=== PATIENT | female | born 1945 | race Caucasian/White ===

== ENCOUNTER 2022-10-09 11:00 | Outpatient (RCR) | payer MEDICARE, SELFPAY ==
--- NOTE | 2022-07-22 10:57 | HP.PTEVAL ---
Patient's Visit Information JOSELINE THOMAS is a 76 year old F referred to Physical Therapy by HOLLI STOCK with a diagnosis of Ischial bursitis L and hamstring tendonitis. Date of Evaluation: 07/22/22 Physical Therapist: RACHEL Malin - Visit Plan Frequency: 2x /Week Duration: 2 Months Plan: +++Goes by Joseline Dixon++++. 2X/ week for 8 weeks (scheduled for 3 weeks to start) for manual foam rolling to B piriformis and IT band, stretching of B piriformis and IT band, glut med strength, hip and core strengthening with HEP - Subjective She just moved back here from [place] and she has done PT several times in [place] but has moved back here and deciding on a hip replacement versus continued treatment. She has seen Dr Sparks and the hip replacement is up to her but her needs care. She has lidocaine patches, tramadol, oxy. She does not take them unless it is an emergency. She does not know if she can afford PT as far as the cost is concerned. This has been going on for years and there are times that her knees will lock up and at that point she will fall. This ususally happens when she is walking the dogs. She has also had the injections in her legs for pain. He current sx without an meds... she has ache from hip to knee on both sides and sometimes more on her sit bones she will have pain. Her pain is sporadic. In PT before and it has helped as long as she can keep it up at home too. They did a lot of stretching and exercises with her last time. Pt reports that Dry Needling did not work. They tried orthotics and that did not do anything. Pt reports that stretching and strenghthening that she can do at home is more beneficial. Rolling over in bed and getting out of bed is more of an issue for her. As she tries to roll to the L everything hurts on the L side. Scooting in bed either way hurts and she has to work hard to scoot over. She can sit for hours. She can stand most of the the time for hours. She has more pain laying on that side or compression on that side. - Pain R hip pain Pain Intensity (Out of 10): 2 L hip pain Pain Intensity (Out of 10): 5 R buttock pain Pain Intensity (Out of 10): 0 L buttock pain Pain Intensity (Out of 10): 0 - Objective Gait: walks with short stride and increase veering with gait. Trunk AROM: flex 75%, ext 25%, SB B 25%, Rot B 25%. Pt is able to rise on heels and toes with the help of the hallways rail. LE MMT: R hip flex 7.6# and L 5.7#. R knee ext 23.4 and L knee ext 22.4. R knee flex 9.8# and L knee flex 6.9. R hip abd 8.8# and L hip abd 9.9. Palpation: tender R IT band and VERY TENDER L IT BAND. Bridge: 1/2 normal ROM and increase pain across B buttocks. SLUMP test - B )some HS tightness. Lying PRONE pt felt pain across B buttocks and when bent knees she felt worse pain from her knee up the back to her bottock. Piriformis: increase pain with stretching B but worse on the L. Instructed pt in seated knee to opposite shoulder piriformis stretch - Balance/Special Test Scores Lower Extremity Functional Score: 46 - Goals Goal 1:: I HEP Goal Time Frame: 6-8 Weeks Goal 2:: Increase B piriformis flexibility Goal Time Frame: 6-8 Weeks Goal 3:: Complaints of no pain scooting over in bed or rolling onto her side Goal Time Frame: 6-8 Weeks - Rehabilitation Potential Rehabilitation Potential: Good - Anticipated Interventions Patient/Client Instruction: Educate patient on: Condition, Plan of Care For the Purpose of:: To decrease pain, To increase ROM, To improve nutrient delivery to tissue, To improve muscle performance and motor function, To improve ability to perform ADL's, To increase tolerance to activity/condition/position, To improve performance and independence with ADL's, To decrease level of supervision to perform tasks, To improve ability of physical actions for home/community/work/leisure, To improve gait and locomotor functions, To improve health of tissue, To decrease soft tissue restriction, To increase flexibility/ROM, To improve endurance, To improve balance, To improve safety with gait Therapeutic Exercise to Include: Strength training, Endurance training, Balance training, Body mechanics, Postural training, Flexibilty training, Gait and locomotor training, Passive ROM, Active ROM, Dynamic Lumbar Stabilization For the Purpose of:: To decrease pain, To increase ROM, To improve nutrient delivery to tissue, To improve muscle performance and motor function, To improve ability to perform ADL's, To increase tolerance to activity/condition/position, To improve performance and independence with ADL's, To decrease level of supervision to perform tasks, To improve ability of physical actions for home/community/work/leisure, To improve gait and locomotor functions, To improve health of tissue, To decrease soft tissue restriction, To increase flexibility/ROM, To improve endurance, To improve balance, To improve safety with gait Functional Training to Include: Gait training For the Purpose of:: To improve gait and locomotor functions, To improve safety with gait Manual Therapy Techniques to Include: Passive ROM For the Purpose of:: To decrease pain, To increase ROM, To improve nutrient delivery to tissue, To improve muscle performance and motor function, To improve ability to perform ADL's, To increase tolerance to activity/condition/position, To improve performance and independence with ADL's, To decrease level of supervision to perform tasks, To improve ability of physical actions for home/community/work/leisure, To improve gait and locomotor functions, To improve health of tissue, To decrease soft tissue restriction, To increase flexibility/ROM, To improve balance Thank you for the opportunity to evaluate your patient. For Medicare and Medicare HMO plans, please review the plan of care and approve it. It will need to be FAXED BACK to us at [phone] for Medicare purposes. For Medicare only, by signing this I certify the plan of care. Please let me know if there are questions or concerns regarding this plan of care. Physician Signature: Date:
--- NOTE | 2022-08-21 17:29 | HP.PTREVAL ---
HOLLI STOCK, It has been my pleasure to treat DELFINA THOMAS over the last 7 visits for Ischial bursitis L and hamstring tendonitis. Please see the progress note below for an update on the physical therapy plan of care! Subjective: Pt reports that this has been going on for years now and its not going to be better fast. She reports that maybe she is a little better. She saw Dr Garcia today. Her pain depends on what she is doing and where she is. She can do things but maybe slower. She is doing her HEP twice a day. Objective/Function: subjective rolling over or scooting in bed: still painful when rolls to the L. Piriformis flexibility: improved. Pt asking about her meds and told her she would have to direct those questions to her Dr. Plan Plan: Add some eccentric strengthening of HS and glut. 2X/ week for 8 weeks (scheduled for 3 weeks to start) for manual foam rolling to B piriformis and IT band, stretching of B piriformis and IT band, glut med strength, hip and core strengthening with HEP Balance/Gait/Functional tests - Balance/Special Test Scores Lower Extremity Functional Score: 50 Goals Goal 1:: I HEP Goal Time Frame: 6-8 Weeks Goal 2:: Increase B piriformis flexibility Goal Time Frame: 6-8 Weeks Goal 3:: Complaints of no pain scooting over in bed or rolling onto her side Goal Time Frame: 6-8 Weeks Goal Progress: Progressing Anticipated Interventions Patient/Client Instruction: Educate patient on: Condition, Plan of Care For the Purpose of:: To decrease pain, To increase ROM, To improve nutrient delivery to tissue, To improve muscle performance and motor function, To improve ability to perform ADL's, To increase tolerance to activity/condition/position, To improve performance and independence with ADL's, To decrease level of supervision to perform tasks, To improve ability of physical actions for home/community/work/leisure, To improve gait and locomotor functions, To improve health of tissue, To decrease soft tissue restriction, To increase flexibility/ROM, To improve endurance, To improve balance, To improve safety with gait Therapeutic Exercise to Include: Strength training, Endurance training, Balance training, Body mechanics, Postural training, Flexibilty training, Gait and locomotor training, Passive ROM, Active ROM, Dynamic Lumbar Stabilization For the Purpose of:: To decrease pain, To increase ROM, To improve nutrient delivery to tissue, To improve muscle performance and motor function, To improve ability to perform ADL's, To increase tolerance to activity/condition/position, To improve performance and independence with ADL's, To decrease level of supervision to perform tasks, To improve ability of physical actions for home/community/work/leisure, To improve gait and locomotor functions, To improve health of tissue, To decrease soft tissue restriction, To increase flexibility/ROM, To improve endurance, To improve balance, To improve safety with gait Functional Training to Include: Gait training For the Purpose of:: To improve gait and locomotor functions, To improve safety with gait Manual Therapy Techniques to Include: Passive ROM For the Purpose of:: To decrease pain, To increase ROM, To improve nutrient delivery to tissue, To improve muscle performance and motor function, To improve ability to perform ADL's, To increase tolerance to activity/condition/position, To improve performance and independence with ADL's, To decrease level of supervision to perform tasks, To improve ability of physical actions for home/community/work/leisure, To improve gait and locomotor functions, To improve health of tissue, To decrease soft tissue restriction, To increase flexibility/ROM, To improve balance Please do not hesitate to contact me at [phone] by phone or if you have questions or concerns regarding this new plan of care! Sincerely, RACHEL Malin
--- NOTE | 2022-10-09 11:47 | HP.PTDCSUM ---
It has been my pleasure to treat DELFINA THOMAS referred by HOLLI STOCK, with the diagnosis of Ischial bursitis L and hamstring tendonitis for a total of 17 visit(s). Discharge Date: 10/09/22 Please see the following information for a summary of their discharge status. Subjective: Pt is comfortable with the machines. She still has to activate her silver sneakers. R hip pain Pain Intensity (Out of 10): 2 L hip pain Pain Intensity (Out of 10): Unrated R buttock pain Pain Intensity (Out of 10): Unrated L buttock pain Pain Intensity (Out of 10): Unrated back pain Pain Intensity (Out of 10): 3 % Improvement: 100 Objective/Function: Rolling/scooting over in bed is not getting any different. Piriformis muscle length: Pt has improved muscle length... she still feels a stretch but it is not painful and more ROM Goal 1:: I HEP Goal Progress: Goal Met Goal 2:: Increase B piriformis flexibility Goal Progress: Progressing Goal 3:: Complaints of no pain scooting over in bed or rolling onto her side Goal Progress: Progressing Plan: DC PT to I HEP and Silver sneakers gym routine (she has gym routine log sheet) Discharge Comments: DC PT to HEP and I H&W program If there are questions or concerns regarding this patient's physical therapy, please feel free to call me at [phone]. Thank you for the referral of this patient. Sincerely, Vita Kevin, MPT Balance/Gait/Functional tests - Balance/Special Test Scores Lower Extremity Functional Score: 54
== END 2022-10-09 19:00 | disposition home or self-care (01) ==
LOC: PT 11:00
PROVIDERS: PCP Family Medicine
DX: M70.72 Other bursitis of hip, left hip (principal); M76.899 Other specified enthesopathies of unspecified lower limb, excluding foot
CPT/HCPCS: 97110; 97161; 97530

== ENCOUNTER → 2022-12-21 | Outpatient (CLI) | payer MEDICARE, SELFPAY ==
--- NOTE | 2022-12-21 08:30 | MRI_ITS ---
INDICATION: PAIN EXAMINATION: MRI - MR Spine Lumbar W/O Contrast TECHNIQUE: Multiplanar and multisequence MR images of the lumbar spine. IV Contrast Dosage and Agent: None. COMPARISON: None. FINDINGS: VERTEBRAE: Chronic T12 compression fracture with retropulsed fragment tenting the thecal sac. No acute fracture or pathologic marrow replacement. VERTEBRAL ALIGNMENT: 4 mm retrolisthesis L1 on L2, 9 mm spondylolisthesis L4 on L5. There is preservation of the normal lumbar lordosis. CORD: Normal position and signal intensity of the conus medullaris. L1/L2: Normal disc space height. Circumferential annular bulge and posterior element hypertrophy produces moderate bilateral foraminal stenosis. L2/L3: Loss of normal disc space height. Circumferential annular bulge produces moderate central and bilateral foraminal stenosis. L3/L4: Normal disc space height. Circumferential annular bulge produces mild central and moderate bilateral foraminal stenosis in combination with posterior element hypertrophy. L4/L5: Loss of normal disc space height. Pseudobulge combined with posterior element hypertrophy produces moderate central and severe bilateral foraminal stenosis, right side more severe than left. L5/S1: Loss of normal disc space height. 4 mm lateral disc herniation extends into the left neural foramen producing severe stenosis. SOFT TISSUES: Left parapelvic renal cysts. MRI/Spine Lumbar (Routine) IMPRESSION: 4 mm left lateral disc herniation at L5-S1. Chronic T12 compression fracture with retropulsed fragment tenting the thecal sac. Multilevel central and foraminal stenoses as above, most severe findings at the level of L4-5. Electronically Signed: Crescencio Garza MD at 0:17 EDT ,
== END | disposition home or self-care (01) ==
LOC: MRI 08:32
PROVIDERS: PCP Internal Medicine
DX: M79.604 Pain in right leg (principal); I73.9 Peripheral vascular disease, unspecified; M79.605 Pain in left leg; R26.9 Unspecified abnormalities of gait and mobility; G60.9 Hereditary and idiopathic neuropathy, unspecified
CPT/HCPCS: 72148

== ENCOUNTER 2022-12-25 15:55 | Outpatient (RCR) | payer MEDICARE, SELFPAY ==
--- NOTE | 2022-12-25 18:50 | HP.PTEVAL_ITS ---
Patient's Visit Information Visit Information Visit Information: DELFINA THOMAS is a 77 year old F referred to Physical Therapy by HOLLI STOCK with a diagnosis of B leg pain, Claudication of BLEs, gait abnormality, idiopathic neuropathy. Date of Evaluation: 12/25/22 Physical Therapist: Juan Chester DPT Visit Plan Frequency: 2x /Week Duration: 6 Weeks Plan: Start with B hip and core strengthening in aquatic setting. Pt. is following up with physician about MRI and determine best course of action. Subjective Subjective: Pt. is here today for her initial evaluation with diagnosis of B leg pain, Claudication of BLEs, gait abnormality, idiopathic neuropathy. Pt. reports over the past few months having increased tingling in her legs and that they give out on her at times. Pt. reports having multiple issues including her B leg pain, less so back pain, optical flashes patient reports this is due to a possible stroke, and fibromyalgia. Pt. reports increased pain and tingling in her legs with prolonged standing and walking. No issues with sitting, but there is a constant dull symptoms always present. Pt. has tried PT in the past without much relief. Pt. has done DN without much relief as well. She did do some aquatic exercises with some mild relief and is interested in trialing again. She did have an MRI last week on her lumbar spine as well. Pt. has also tried injections in the past. Pain BLEs: Pain Intensity (Out of 10): 4 Pain Intensity Range: 0 and 8 Lumbar spine: Pain Intensity (Out of 10): 3 Pain Intensity Range: 0 and 6 Objective Objective: POSTURE: Pt. has general flexed posture in stance. Pt. and decreased lumbar lordosis. Equal iliac crest heights. PALPATION: Pt. has tenderness to light and firm palpation throughout BLEs. Pt. has tenderness along lumbar spine with PA testing. NEURO: Pt. normal sensation in BLEs to light touch. Pt. has normal DTR of BLEs. ROM: LUMBAR SPINE: flexion min loss NE, ext mod loss increase NW, SB mod loss NE bilat, rotation mod loss bilat NE. B hips: decent ROM, slight loss increase IR and flexion. No pain with hip ROM testing. MMT: Distal LEs. Pt. has good strength 5/5 . B hips: flexion 5-/5, abd 4/5, ext 4+/5. Core strength poor. GAIT: Pt. ambulates without AD. Pt. had increased lateral hip sway, not a full Trendelenburg, but noticeable lateral hip weakness. Balance/Special Test Scores Lower Extremity Functional Score: 42 Goals Goal 1:: LTG: Pt. to be I with HEP. Goal Time Frame: 4-6 Weeks Goal 2:: LTG: Pt. to have increased core and B hip strength increased by 1/2 gra de throughout. Goal Time Frame: 4-6 Weeks Goal 3:: LTG: Pt. to sleep throughout the night without increase in BLE or low back symptoms. Goal Time Frame: 4-6 Weeks Goal 4:: LTG: Pt. to be able to walk for 10 minutes without increase in BLE or back symptoms. Goal Time Frame: 4-6 Weeks Rehabilitation Potential Physical Therapy Diagnosis: Pt. has signs and symptoms consistent with B leg pain, Claudication of BLEs, gait abnormality, idiopathic neuropathy. Pt. does a have a recent MRI that results may be also contributing her her symptoms. Pt. has marked core and hip weakness and would benefit from PT to work on these weakness in order to reduce stress to lumbar spine with standing activities. Rehabilitation Potential: Fair Anticipated Interventions Patient/Client Instruction: Educate patient on: Condition, Plan of Care, Risk Factors and Benefits of Fitness Program For the Purpose of:: To facilitate caregiver knowledge, To improve self management, To prevent re-injury, To improve ability to perform tasks related to life management and To improve tolerance to ADL's Therapeutic Exercise to Include: Strength training, Power training, Endurance training, Balance training, Flexibilty training, Gait and locomotor training, In an aquatic setting and Dynamic Lumbar Stabilization For the Purpose of:: To decrease pain, To increase ROM, To improve nutrient delivery to tissue, To increase oxygenation perfusion, To improve muscle performance and motor function, To improve ability to perform ADL's, To improve gait and locomotor functions, To improve health of tissue, To decrease soft tissue restriction and To increase flexibility/ROM Text: Thank you for the opportunity to evaluate your patient. For Medicare and Medicare HMO plans, please review the plan of care and approve it. It will need to be FAXED BACK to us at [phone] for Medicare purposes. For Medicare only, by signing this I certify the plan of care. Please let me know if there are questions or concerns regarding this plan of care. Physician Signature: Date:
== END 2022-12-25 19:00 | disposition home or self-care (01) ==
LOC: PT 15:55
PROVIDERS: PCP Family Medicine
DX: M79.604 Pain in right leg (principal); M79.605 Pain in left leg; I73.9 Peripheral vascular disease, unspecified; R26.9 Unspecified abnormalities of gait and mobility; G60.9 Hereditary and idiopathic neuropathy, unspecified
CPT/HCPCS: 97161

== ENCOUNTER 2023-05-05 07:48 | Outpatient (RCR) | payer MEDICARE, SELFPAY ==
--- NOTE | 2023-05-05 08:46 | HP.PTEVAL_ITS ---
Patient's Visit Information Visit Information Visit Information: DELFINA THOMAS is a 77 year old F referred to Physical Therapy by Dr. Kemal Cano MD with a diagnosis of L/S sponylosis, Chronic LBP. Date of Evaluation: 05/05/23 Physical Therapist: RACHEL Malin Visit Plan Frequency: 2x /Week Duration: 2 Months Plan: 2X/ week for 8 weeks for AT for neutral spine core stability, Posture, LE strengthening, balance with HEP Subjective Subjective: Pt reports that her has PD and makes her do a lot. She has back pain and pain management and had one injection and did not work other than for a few days. She has a follow up with Dr. Novak for a possible another injection. 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 She reports that she has an eye issue and that is hindering her vision. She is having trouble walking and stubs her feet. Her sx for her LB...feels like she has been kicked and she points to across her LB and more on the R side as to where her back pain is. She has an achy pain. Typically she has no pain sitting but more so when she is up walking etc. She has some pain sitting and reaching. She reports that she has N&T in her feel and lower and upper legs. It hurts to put things up on closet shelves. She was also diagnosed with PD also. She is doing marching, LAQ, clam shells, walking (20 min several times a day on a level surface at home or at school). She has no stairs at home. She is sleeping sometimes but is up a lot with her . The Dr told her she has vertebrae that are getting thinner. She has osteoporosis and FM and does not have RA but it does run in the family. She does not feel like her legs are weak but if she walks a lot they feel like they want to lock up on her. She has fallen. She has fallen 4 times in the last 6 months....generally when lifting or the dogs pulling her in opposite directions. No dizziness. She has full feeling in her legs. Pain Back pain: Pain Intensity (Out of 10): 2 Pain Intensity Range: 7 Comment: with walking in Objective Objective: Gait: walks with decrease stride length and decrease heel to toe pattern and increase side to side translation, flexed posture. LE MMT: R hip flex 12 and L 6 R knee ext 22 and L 23 R knee flex 11 and L 14 FGA: 19 Patellar DTR: 2+/3 Trunk AROM: Flexion 100%, SB B 10% (increase pain), Ext to neutral (increase pain), Rot B 75% SLUMP: negative B except for stretching of B HS Balance/Special Test Scores Functional Gait Assessment Score: 19 % Disability: 36.6700 Oswestry Low Back Score: 22 Goals Goal 1:: I HEP Goal Time Frame: 6-8 Weeks Goal 2:: Decrease back pain to 5/10 with standing and walking Goal Time Frame: 6-8 Weeks Goal 3:: Increase LE strength (at time of the eval: LE MMT: R hip flex 12 and L 6 R knee ext 22 and L 23 R knee flex 11 and L 14) Goal Time Frame: 6-8 Weeks Goal 4:: Be able to walk with more upright posture Goal Time Frame: 6-8 Weeks Rehabilitation Potential Rehabilitation Potential: Good Anticipated Interventions Patient/Client Instruction: Educate patient on: Condition and Plan of Care For the Purpose of:: To decrease pain, To increase ROM, To improve nutrient delivery to tissue, To increase tolerance to activity/condition/position, To improve performance and independence with ADL's, To improve ability of physical actions for home/community/work/leisure, To improve gait and locomotor functions, To improve health of tissue, To decrease soft tissue restriction, To increase flexibility/ROM and To improve endurance Therapeutic Exercise to Include: Strength training, Postural training, Flexibilty training, Gait and locomotor training, Neuromotor development, In an aquatic setting, Active ROM, Dynamic Lumbar Stabilization and Scapular Strength/Stabilization For the Purpose of:: To decrease pain, To decrease swelling/inflammation, To increase ROM, To increase oxygenation perfusion, To improve muscle performance and motor function, To improve ability to perform ADL's, To increase tolerance to activity/condition/position, To improve performance and independence with ADL's, To decrease level of supervision to perform tasks, To improve gait and locomotor functions, To improve health of tissue, To decrease soft tissue r estriction, To increase flexibility/ROM, To improve endurance and To improve balance Text: Thank you for the opportunity to evaluate your patient. For Medicare and Medicare HMO plans, please review the plan of care and approve it. It will need to be FAXED BACK to us at [phone] for Medicare purposes. For Medicare only, by signing this I certify the plan of care. Please let me know if there are questions or concerns regarding this plan of care. Physician Signature: Date:____
== END 2023-05-05 23:59 | disposition home or self-care (01) ==
LOC: PT 07:48
PROVIDERS: PCP Internal Medicine; Referring Provider Internal Medicine; Visit Provider Internal Medicine
DX: M47.817 Spondylosis without myelopathy or radiculopathy, lumbosacral region (principal); M54.50 Low back pain, unspecified; G89.29 Other chronic pain
CPT/HCPCS: 97162

== ENCOUNTER → 2023-09-05 | Outpatient (CLI) | payer MEDICARE, SELFPAY ==
[2023-09-05 17:34] LABS: Amphetamine Urine VISTA NEGATIVE (<1000 ng/mL); Barbiturate Urine VISTA NEGATIVE (< 200 ng/mL); Benzodiazepine Urine VISTA NEGATIVE (< 200 ng/mL); Cocaine Urine VISTA NEGATIVE (< 300 ng/mL); Ecstacy Urine VISTA NEGATIVE (< 500 ng/mL); Methadone Urine VISTA NEGATIVE (< 300 ng/mL); PCP Urine VISTA NEGATIVE (< 25 ng/mL); THC Urine VISTA NEGATIVE (< 50 ng/mL); Vista UDS pH Range 5
== END | disposition home or self-care (01) ==
LOC: LAB 16:39
PROVIDERS: PCP Internal Medicine; Referring Provider Anesthesiology; Visit Provider Anesthesiology
DX: F11.20 Opioid dependence, uncomplicated (principal)
CPT/HCPCS: 80307

== ENCOUNTER 2023-10-22 11:30 | Outpatient (RCR) | payer MEDICARE, SELFPAY ==
--- NOTE | 2023-05-28 07:04 | HP.PTEVAL ---
Patient's Visit Information Visit Information Visit Information: DELFINA THOMAS is a 77 year old F referred to Physical Therapy by Dr. Diego Novak MD with a diagnosis of IVDD lumbar spine, IVDD lumbosacral region, lumbar radiculopathy. Date of Evaluation: 05/26/23 Physical Therapist: Juan Chester DPT Visit Plan Frequency: 2x /Week Duration: 4 Weeks Plan: Start with neutral spine core stability exercises. May use US if needed to lumbar spine bilateral sides. Start with supine/hooklying excises progressing to standing multifidus and lumbar extensor strengthening. Subjective Subjective: Pt. is here today for her initial evaluation with diagnosis of IVDD lumbar spine, IVDD lumbosacral region, lumbar radiculopathy. Pt. did have an injection on last . 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 Pt. reports reports pain is and middle of her spine and bilateral LEs. Pt. has some relief with her injections thus far. 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 She reports pain that does radiate down BLEs, intermittently. Usually to the length of her thighs. Pt. reports no sudden BLE weakness, no B/B issues. Pt. is hopeful to reduce symptoms and increase her strength in order to complete all ADLs and work activities without limitations. Pain Lumbar spine: Pain Intensity (Out of 10): 2 Pain Intensity Range: 2 and 9 Objective Objective: POSTURE: General flexed posture with forward head. Increased anterior pelvic tilt noted. PALPATION: Increased pain with palpation of lumbar spine. Spring testing + for hypomobility and pain throughout lumbar spine. ROM: L/S: flexion min loss increase nW, ext mod loss increase NW, SB min loss bilat increase NW, rotation min loss pancho increase NE. NEURO: normal throughout. Pt. reports numbness in BLEs, but able to sense light and sharp touch throughout out. MMT: 5/5 LE strength, except 4/5 B hip flexion and B hip abduction. Core strength: poor. gait; Pt. has increased lateral hip sway with gait, no true [place] noted. STAIRS: marked weakness with descending, decreased LE control. No increase in symptoms. Balance/Special Test Scores Oswestry Low Back Score: 11 Goals Goal 1:: LTG: PT. to be I with HEp for core stability. Goal Time Frame: 4-6 Weeks Goal 2:: STG: Pt. to sleep throughout the night without increase in symptoms. Goal Time Frame: 2-4 Weeks Goal 3:: LTG: Pt. to have increased core strength to fair throughout. Goal Time Frame: 2-4 Weeks Goal 4:: LTG: PT. to complete all work and recreational activities without increase in symptoms. Goal Time Frame: 4-6 Weeks Rehabilitation Potential Physical Therapy Diagnosis: PT. has signs and symptoms consistent with IVDD lumbar spine, IVDD lumbosacral region, lumbar radiculopathy. Pt. has marked lumbar ROM loss and increased pain with all spinal mobility. She did not present with a directional preference at this time. She would benefit from PT to work on core stability exercises allowing for increased spinal stability for tolerance to all work and recreational activities. Rehabilitation Potential: Good Anticipated Interventions Patient/Client Instruction: Educate patient on: Condition, Plan of Care, Risk Factors and Benefits of Fitness Program For the Purpose of:: To improve decision making, To facilitate caregiver knowledge, To improve self management, To prevent re-injury and To improve ability to perform tasks related to life management Therapeutic Exercise to Include: Strength training, Power training, Postural training, Flexibilty training and Gait and locomotor training For the Purpose of:: To decrease pain, To increase ROM, To improve nutrient delivery to tissue, To increase oxygenation perfusion, To improve muscle performance and motor function, To improve ability to perform ADL's, To increase tolerance to activity/condition/position, To improve health of tissue and To decrease soft tissue restriction Ultrasound (thermal/non thermal): Yes For the Purpose of:: To decrease pain, To decrease swelling/inflammation and To increase ROM Text: Thank you for the opportunity to evaluate your patient. For Medicare and Medicare HMO plans, please review the plan of care and approve it. It will need to be FAXED BACK to us at [phone] for Medicare purposes. For Medicare only, by signing this I certify the plan of care. Please let me know if there are questions or concerns regarding this plan of care. Physician Signature: Date:
--- NOTE | 2023-07-23 14:23 | HP.PTREVAL_ITS ---
Re-Evaluation Intro: Dr. Diego Novak MD, It has been my pleasure to treat DELFINA THOMAS over the last 12 visits for IVDD lumbar spine, IVDD lumbosacral region, lumbar radiculopathy. Please see the progress note below for an update on the physical therapy plan of care! Subjective Subjective: Pt reports her back pain is about the same and walking is becoming more difficult. Pt reports weakness and her legs giving out which is affecting her balance. [place]. Has a pain management appointment tomorrow. Objective Objective/Function: ROM: pt felt a good stretch with L hip figure 4 stretch with OP, long axis traction and stretching helped to reduce pain with gait GAIT: increased lateral trunk sway, forward flexed posture MMT: weakness when resisting gravity in S/L, including core weakness 4/5, hip strength 4/5 throughout. Slight pain with hip ER motions. PALPATION: tenderness along L ITB and glute med Pt. just came back from a trip out of state. Pt. is still having similar issues. She c/o increased B hip pain, but more so her L side. We have not had much progression with core stability exercises. I would like to progress looking into mobility and strengthening of her L hip. Plan of care is now pivoting towards a muscular origin of the L hip. Pt demonstrates tightness in L ITB and weakness of L glute med, pain recreated with palpation and foam rolling to LLE. Pt appears to have no lingering pain or injury following fall on moving sidewalk last week (appears to be an accident, not d/t poor balance), will update with balance outcome measure to address any balance deficits. Plan Plan Plan: 1) STM to L glute med, ITB and piriformis 2) Hip and glute strengthening (within pain-free ROM) 3) Long axis hip traction 4) Neutral spine strengthening HEP: orange banded clamshells, piriformis stretch Balance/Gait/Functional tests Balance/Special Test Scores Oswestry Low Back Score: 9 Goals Goals Goal 1:: LTG: PT. to be I with HEp for core stability. Goal Time Frame: 4-6 Weeks Goal Progress: Goal Met Goal 2:: STG: Pt. to sleep throughout the night without increase in symptoms. 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 to complete all work and recreational activities without increase in symptoms. Goal Time Frame: 2-4 Weeks Goal Progress: Progressing Goal 5:: LTG: Pt will demonstrate min to no tenderness to L ITB and glutes Goal Time Frame: 2-4 Weeks Goal Progress: Progressing Goal 6:: LTG: Pt will demonstrate 4/5 hip strength with <2/10 pain Goal Time Frame: 2-4 Weeks Goal Progress: Progressing Anticipated Interventions Anticipated Interventions Patient/Client Instruction: Educate patient on: Condition, Plan of Care, Risk Factors and Benefits of Fitness Program For the Purpose of:: To improve decision making, To facilitate caregiver knowledge, To improve self management, To prevent re-injury and To improve abil ity to perform tasks related to life management Therapeutic Exercise to Include: Strength training, Power training, Postural training, Flexibilty training and Gait and locomotor training For the Purpose of:: To decrease pain, To increase ROM, To improve nutrient delivery to tissue, To increase oxygenation perfusion, To improve muscle performance and motor function, To improve ability to perform ADL's, To increase tolerance to activity/condition/position, To improve health of tissue and To decrease soft tissue restriction Ultrasound (thermal/non thermal): Yes For the Purpose of:: To decrease pain, To decrease swelling/inflammation and To increase ROM Re-Evaluation Ending Re-evaluation ending: Please do not hesitate to contact me at [phone] by phone or if you have questions or concerns regarding this new plan of care! Sincerely, Juan Chester DPT
--- NOTE | 2023-08-27 11:57 | HP.PTREVAL ---
Re-Evaluation Intro: Dr. Diego Novak MD, It has been my pleasure to treat DELFINA THOMAS over the last 19 visits for IVDD lumbar spine, IVDD lumbosacral region, lumbar radiculopathy. Please see the progress note below for an update on the physical therapy plan of care! Subjective Subjective: Pt. reports overall doing okay. She is still having some issues with her L hip. Pt. reports her back is doing better. Pt. reports being ~40% better overall. Objective Objective/Function: ROM: L Hip: flexion 100deg mild increase NW, IR 30deg NE, ER 60deg increase NW, ext 10deg NE. LUMBAR SPINE: flexion min/nil loss mild increase NW, ext mod loss NE, SB R min loss increase NW L hip pain. SB L min loss NE, rotation min loss bilat NE. Palpation: Pt. has increased tenderness along L hip superior and posterior to greater trochanter. No as much along piriformis. more along gluteus medius. GAIT: pt has slight increase in Trendelenburg gait more so on the L side. Increased pain during L stance phase of stairs. She was done okay with core stability, but is still having increased L hip with standing and work related activities. Core stability has helped, but she is still having increased pain suggetive of possible gluteus medius pathology. No marked joint pain, no C-sign. I would like to continue to work on glute medius strengthening and loading of the tissue. She is still very tender in this region and I would like to see if we can remodel that tissue in order to reduce stress to the tissue with all of her her ADLs and work activities. Plan Plan Plan: Work on glute med strengthening with progressive loading. Add in glute max strengthening as well. Balance/Gait/Functional tests Balance/Special Test Scores Oswestry Low Back Score: 9 Goals Goals Goal 1:: LTG: PT. to be I with HEp for core stability. Goal Time Frame: 4-6 Weeks Goal Progress: Goal Met Goal 2:: STG: Pt. to sleep throughout the night without increase in symptoms. 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 to complete all work and recreational activities without increase in symptoms. Goal Time Frame: 2-4 Weeks Goal Progress: Progressing Goal 5:: LTG: Pt will demonstrate min to no tenderness to L ITB and glutes Goal Time Frame: 2-4 Weeks Goal Progress: Progressing Goal 6:: LTG: Pt will demonstrate 4/5 hip strength with <2/10 pain Goal Time Frame: 2-4 Weeks Goal Progress: Progressing Anticipated Interventions Anticipated Interventions Patient/Client Instruction: Educate patient on: Condition, Plan of Care, Risk Factors and Benefits of Fitness Program For the Purpose of:: To improve decision making, To facilitate caregiver knowledge, To improve self management, To prevent re-injury and To improve ability to perform tasks related to life management Therapeutic Exercise to Include: Strength training, Power training, Postural training, Flexibilty training and Gait and locomotor training For the Purpose of:: To decrease pain, To increase ROM, To improve nutrient delivery to tissue, To increase oxygenation perfusion, To improve muscle performance and motor function, To improve ability to perform ADL's, To increase tolerance to activity/condition/position, To improve health of tissue and To decrease soft tissue restriction Ultrasound (thermal/non thermal): Yes For the Purpose of:: To decrease pain, To decrease swelling/inflammation and To increase ROM Re-Evaluation Ending Re-evaluation ending: Please do not hesitate to contact me at [phone] by phone or if you have questions or concerns regarding this new plan of care! Sincerely, Juan Chester DPT
--- NOTE | 2023-10-02 12:58 | HP.PTREVAL ---
Re-Evaluation Intro: Dr. Diego Novak MD, It has been my pleasure to treat DELFINA THOMAS over the last 28 visits for IVDD lumbar spine, IVDD lumbosacral region, lumbar radiculopathy. Please see the progress note below for an update on the physical therapy plan of care! Subjective Subjective: Pt. reports she feels better with exercises, but it comes back by the time she is here the next time. Pt. reports 3/10 pain at lateral hip. Objective Objective/Function: LUMBAR ROM: flexion nil loss, ext min loss decrease better, SB L min loss increase NW, SB R NE tight, rotation min loss NE. MMT: RLE: knee ext 32.5#, flexion 22.8#; hip: abd 21.5# LLE: knee: ext 34.9#, flexion 16.9#; hip: abd 24.4# She has had some gains in strength and does report overall improving. Pt. is overall improving. I am recommending that we start to progress to I gym program. She does have silver sneakers and plans to progress to gym exercises. Plan Plan Plan: Pt. to be seen x2 week for 3 weeks with progression to gym exercises. Add in general LE, but include glute and lumbar spine exercises. Mostly machines for ease of exercises. Balance/Gait/Functional tests Balance/Special Test Scores Oswestry Low Back Score: 10 Goals Goals Goal 1:: LTG: pt. to be I with gym program with focus on LE, hip and core strengthening. Goal Time Frame: 4-6 Weeks Goal Progress: Progressing Goal 2:: STG: Pt. to sleep throughout the night without increase in symptoms. 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 to complete all work and recreational activities without increase in symptoms. Goal Time Frame: 2-4 Weeks Goal Progress: Progressing Goal 5:: LTG: Pt will demonstrate min to no tenderness to L ITB and glutes Goal Time Frame: 2-4 Weeks Goal Progress: Progressing Goal 6:: LTG: Pt will demonstrate 4/5 hip strength with <2/10 pain Goal Time Frame: 2-4 Weeks Goal Progress: Progressing Anticipated Interventions Anticipated Interventions Patient/Client Instruction: Educate patient on: Condition, Plan of Care, Risk Factors and Benefits of Fitness Program For the Purpose of:: To improve decision making, To facilitate caregiver knowledge, To improve self management, To prevent re-injury and To improve ability to perform tasks related to life management Therapeutic Exercise to Include: Strength training, Power training, Postural training, Flexibilty training and Gait and locomotor training For the Purpose of:: To decrease pain, To increase ROM, To improve nutrient delivery to tissue, To increase oxygenation perfusion, To improve muscle performance and motor function, To improve ability to perform ADL's, To increase tolerance to activity/condition/position, To improve health of tissue and To decrease soft tissue restriction Ultrasound (thermal/non thermal): Yes For the Purpose of:: To decrease pain, To decrease swelling/inflammation and To increase ROM Re-Evaluation Ending Re-evaluation ending: Please do not hesitate to contact me at [phone] by phone or if you have questions or concerns regarding this new plan of care! Sincerely, Juan Chester DPT
--- NOTE | 2023-10-22 11:59 | HP.PTDCSUM ---
Discharge Summary D/C summary: It has been my pleasure to treat DELFINA THOMAS referred by Dr. Diego Novak MD, with the diagnosis of IVDD lumbar spine, IVDD lumbosacral region, lumbar radiculopathy for a total of 33 visit(s). Discharge Date: 10/22/23 Please see the following information for a summary of their discharge status. Subjective Subjective: Pt. reports having 4/10 pain in L hip and lumbar spine today. She has been tolerating working well. Pain Lumbar spine: Pain Intensity (Out of 10): 4 L gluteal region: Pain Intensity (Out of 10): 4 Overall Improvement % Improvement: 70 Objective Objective/Function: ROM: Pt. has good ROM of B hips without increase in symptoms. pt. has good ROM of lumbar spine, except mod loss with extension and with mild increase in symptoms with flexion. MMT: Pt. has symmetrical strength of BLEs with out increase in symptoms, except mild increase with bridging. GAIT: pt. has some increase in symptoms, but mild. STAIRS: normal without issues. At this point in time I am DCing back to physician. Pt. has a good HEP that she can complete at home. Pt. is to trial this and if not progressing she is to follow back up with physician to further testing. Goals Goal 1:: LTG: pt. to be I with gym program with focus on LE, hip and core strengthening. Goal Progress: Goal Met Goal 2:: STG: Pt. to sleep throughout the night without increase in symptoms. 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 to complete all work and recreational activities without increase in symptoms. Goal Progress: Progressing Goal 5:: LTG: Pt will demonstrate min to no tenderness to L ITB and glutes Goal Progress: Goal Met Goal 6:: LTG: Pt will demonstrate 4/5 hip strength with <2/10 pain Goal Progress: Goal Met Plan Plan: DC from PT at this point in time. D/C Information d/c sentence: If there are questions or concerns regarding this patient's physical therapy, please feel free to call me at [phone]. Thank you for the referral of this patient. Sincerely, Juan L Sipos, DPT Balance/Gait/Functional tests Balance/Special Test Scores Oswestry Low Back Score: 10 Lower Extremity Functional Score: 51 Improvement % Improvement: 70
== END 2023-10-22 12:32 | disposition home or self-care (01) ==
LOC: PT 11:30
PROVIDERS: PCP Internal Medicine; Referring Provider Anesthesiology Pain Medicine; Visit Provider Anesthesiology Pain Medicine
DX: M51.36 Other intervertebral disc degeneration, lumbar region (principal); M51.37 Other intervertebral disc degeneration, lumbosacral region; M54.16 Radiculopathy, lumbar region
CPT/HCPCS: 97035; 97110; 97140; 97161; 97164; 97530

== ENCOUNTER 2024-01-08 11:00 | Outpatient (RCR) | payer MEDICARE, SELFPAY ==
--- NOTE | 2023-12-22 10:14 | HP.PTEVAL_ITS ---
Patient's Visit Information Visit Information Visit Information: DELFINA THOMAS is a 78 year old F referred to Physical Therapy by Dr. Kemal Cano MD with a diagnosis of Abnormality of gait, falling episodes. Date of Evaluation: 12/22/23 Physical Therapist: Juan Chester DPT Visit Plan Frequency: 2x /Week Duration: 4 Weeks Plan: Start with static and dynamic balance. Add in eyes open and eyes closed. And on multiple surface. Progress gait training with SPC in order to use safely at home and throughout community. Subjective Subjective: Pt. is here today for her initial evaluation with diagnosis of abnormality of gait, and falling episodes. Pt. reports having one fall over the past few months. Pt. reports that her R leg just gave way, unsure why. Pt. reports being very stressed with her husbands physical decline and potential moving. Pt. reports noticing increased tremoring mostly in her arms. She also reports having tingling in her R león region. Pt. also reports much lack of sleep and nutrition due to her stress levels. Pt. reports pain is not too limiting, but is also a factor. Pt. does not use a device with gait. Pt. did stress several times during evaluation about how much stress she has in her life. Pt. reports going to neurologist whom reports that she does not have Parkinson's. Objective Objective: POASTURE: Pt. has FH posture. Pt. has normal AJIT. Otherwise normal posture. PALPATION: Pt. has some mild pain with palpation of R león, but other menendez normal. No marked edema noted. NEURO: Pt. has normal DTR and normal sensation in BLEs. Pt. is able to rise on heels with mild balance aide. ROM: Pt. has normal ROM of BLEs, slight tightness with trunk extensions and some mild tightness in B calves. MMT: RLE: knee: 38.5#, flexion: 20.4#.; hip: flexion 25.8#, abd 18.7# LLE: knee: ext 39.2#, flexion 22.4#; hip: flexion 25.5#, abd 23.6# GAIT: Pt. ambulated without AD. Pt. has marked bilateral postural sway, but was able to self correct with stepping strategies. Pt. trialed with SPC, but did have a lot of difficulty with the pattern, would benefit from review and practice here as well. Balance/Special Test Scores Functional Gait Assessment Score: 16 % Disability: 46.6700 Lower Extremity Functional Score: 40 TUG Test Time Seconds: 10.5 30 Second Chair Rise Test Seconds: 14 Goals Goal 1:: LTG: Pt. to be I with HEP. Goal Time Frame: 4-6 Weeks Goal 2:: LTG: Pt. to have improved TUG to less than 8 seconds indicating increased balance. Goal Time Frame: 4-6 Weeks Goal 3:: LTG: Pt. to have improved FGA score to great than 23/30 indicating increased stability. Goal Time Frame: 4-6 Weeks Goal 4:: LTG: Pt. to be I with gait with use of SPC allowing for better community safety. Goal Time Frame: 4-6 Weeks Rehabilitation Potential Physical Therapy Diagnosis: Pt. has signs and symptoms consistent with abnormality of gait and has had a falling episode. Pt. reports that her R leg just gave out on her. She does have a history of radicular or BLE pain, but showed no myotomal weakness this date. She did have increased difficulty with walking a straight line, but was able to correct. She did have some reduced stability on her FGA and with her TUG. She would benefit from PT to address her imbalance and have some gait training with SPC. Rehabilitation Potential: Good Anticipated Interventions Patient/Client Instruction: Educate patient on: Condition, Plan of Care, Risk Factors and Benefits of Fitness Program For the Purpose of:: To improve decision making, To facilitate caregiver knowledge, To improve self management, To prevent re-injury and To improve ability to perform tasks related to life management Therapeutic Exercise to Include: Strength training, Balance training, Coordination, Body mechanics and Gait and locomotor training For the Purpose of:: To decrease pain, To increase ROM, To improve nutrient delivery to tissue, To increase oxygenation perfusion, To improve muscle perfor james and motor function and To increase tolerance to activity/condition/position Text: Thank you for the opportunity to evaluate your patient. For Medicare and Medicare HMO plans, please review the plan of care and approve it. It will need to be FAXED BACK to us at [phone] for Medicare purposes. For Medicare only, by signing this I certify the plan of care. Please let me know if there are questions or concerns regarding this plan of care. Physician Signature: Date:
== END 2024-01-08 19:00 | disposition home or self-care (01) ==
LOC: PT 11:00
PROVIDERS: PCP Internal Medicine; Referring Provider Internal Medicine; Visit Provider Internal Medicine
DX: R26.9 Unspecified abnormalities of gait and mobility (principal); R29.6 Repeated falls
CPT/HCPCS: 97110; 97161

== ENCOUNTER 2024-03-23 13:14 | Emergency (ER) | payer MEDICARE, SELFPAY ==
[2024-03-23 13:16] VITALS: BP 153/64; PULSE 139; RESP 18; TEMP 36.5; O2SAT 100; BMI 26.4
--- NOTE | 2024-03-23 13:34 | EKG12_ITS ---
Test Reason : HIGH HR Blood Pressure : / mmHG Vent. Rate : 071 BPM Atrial Rate : 071 BPM P-R Int : 152 ms QRS Dur : 074 ms QT Int : 432 ms P-R-T Axes : 038 045 080 degrees QTc Int : 469 ms Sinus rhythm Poor R wave progression Baseline artifact Borderline Confirmed by Keenan Membreno ([id number]), editor news JUSTIN MEAD ([id number]) on 03/24/2024 9:27:45 AM Referred By: ARA/KYLE Confirmed By:Keenan Membreno
--- NOTE | 2024-03-23 14:44 | CT_ITS ---
EXAM: CT HEAD WITHOUT INTRAVENOUS CONTRAST CLINICAL INDICATION: difficulty with ambulation, shakiness TECHNIQUE: Multiple axial images were obtained of the head without intravenous contrast. This CT exam was performed using one or more of the following dose reduction techniques: automated exposure control, adjustment of the mA and/or kV according to patient size, and/or use of iterative reconstruction technique. RADIATION DOSE: CTDIvol = 44.99 mGy, DLP = 745.49 mGy-cm COMPARISON: No relevant prior studies available. FINDINGS: BRAIN AND EXTRA-AXIAL SPACES: Unremarkable. No intra- or extra-axial hemorrhage. No evidence of acute infarct. No intracranial mass or mass effect. There is preservation of the mark[place]/white matter interface. Posterior fossa structures are unremarkable. Ventricles are appropriate for age. No hydrocephalus. Basal cisterns are patent. BONES/JOINTS: Unremarkable. No discrete lytic or blastic abnormalities. SINUSES: Unremarkable as visualized. Clear. MASTOID AIR CELLS: Unremarkable. Clear. ORBITS: Visualized globes, extraocular muscles, optic nerves and retrobulbar fat appear unremarkable. CT/Brain/Head without Contrast IMPRESSION: Negative head/brain CT without intravenous contrast. Electronically Signed: Bonilla De La Rosa MD at 15:46 EDT ,
--- NOTE | 2024-03-23 14:45 | EX.ED.DYSGE1 ---
HPI History of Present Illness Chief Complaint: General Illness Narrative Narrative: 78-year-old female presents with friend/daughter for medical screening, shakiness, and difficulty ambulating. She relates history that she moved up to [place] and was bringing her down for an appointment with his Parkinson's doctor. She states that although she might be showing a few symptoms, it was determined that she does not have Parkinson's although her father did as well. She called her friend as she was driving along [address], stating that she was very shaky, and was not comfortable driving. Reportedly, she was having problems with ambulation as well. No recent fevers or chills. She states that she feels improved than what she did. Her friend/daughter states that she met them because she was not comfortable with her being behind the wheel of a car, and presents to the emergency department for evaluation. PFSH PFS Home Medications ?Medication ?Instructions ?Recorded ?Last Taken ?Type famotidine 20 mg tablet 20 mg PO BID ##28 08/09/13 Unknown Rx levothyroxine 25 mcg tablet 25 mcg PO DAILY 08/09/13 Unknown History potassium chloride 10 mEq 10 meq PO DAILY 08/09/13 Unknown History tablet,extended release (Klor-Con) spironolactone 25 mg tablet 25 mg PO DAILY 08/09/13 Unknown History sucralfate 1 gram tablet 1 g PO 4X/DAY 08/09/13 Unknown History tamoxifen 20 mg tablet 20 mg PO DAILY 08/09/13 Unknown History trazodone 50 mg tablet 50 mg PO QHS 08/09/13 Unknown History Allergy/AdvReac Type Severity Reaction Status Date / Time progesterone Allergy Mild Rash Verified 03/23/24 13:15 codeine AdvReac Other Verified 03/23/24 13:15 Social History Smoking Status: Never smoker ROS ROS ED ROS Narrative Constitutional: No fever, no chills. HEENT: No sore throat. No neck pain. No loss of vision. No rhinorrhea. Cardiovascular: No chest pain. No palpitations. No pedal edema. Respiratory: No cough, no shortness of breath. Abdominal: No abdominal pain. No nausea. No vomiting. Genitourinary: No dysuria. No hematuria. Musculoskeletal: No myalgias. No arthralgias. Neurologic: No headaches. No dizziness. No lightheadedness. Positive shakiness. Reported difficulty ambulating. Skin: No rash. No change in color. Psychiatric: No depression. No anxiety. EXAM Physical Exam Narrative Exam Narrative: Afebrile. Vital signs noted. Neurological examination nonfocal, nonlateralizing. Awake, alert, oriented x 3. Mildly repetitive. Cardiovascular examination regular rate and rhythm. Lungs are clear to auscultation bilaterally. Abdomen soft nontender with normal active bowel sounds. Const Vital Signs: 03/23/24 13:16 03/23/24 14:11 Temperature 97.7 F L Temperature Source Oral Pulse Rate 139 H Respiratory Rate 18 Respiratory Effort Normal Non-Labored Respiratory Pattern Normal Blood Pressure 153/64 H Blood Pressure Mean 93 Pulse Ox 100 Oxygen Delivery Method Room Air MDM MDM MDM Narrative Medical decision making narrative: Differential diagnosis includes but not limited to dehydration versus electrolyte imbalance versus dementia. Although she was reportedly having a heart rate of 139 in triage, that was over an hour ago, and her EKG was obtained and interpreted by myself independently as normal sinus rhythm at 71 bpm without ectopy or acute ST changes. No STEMI. Also the differential diagnosis would be occult pneumonia or infectious process including urinary tract infection. Basic laboratory work will be obtained as well CT imaging of the brain and chest x-ray to rule out pneumonia or pneumothorax. I reviewed the laboratory work obtained today and she has normal white count of 6.7 with hemoglobin 13.2, hematocrit 40.5. Platelet count normal at 194. Potassium slightly low at 3.3 which was replaced orally with 40 mill equivalents. She states she has supplementation at home and that this is already known to her. Glucose normal at 94, BUN normal at 17 with creatinine 0.68, no dehydration. LFTs are grossly unremarkable. Urinalysis is negative for infection. I do not feel antibiotics are indicated. CT of the brain was obtained and I reviewed the radiology report which shows no acute process. Chest x-ray in 1 view interpreted by myself independently shows no pneumonia or pneumothorax. I reviewed the radiology report which confirms my independent interpretation. Upon repeat examination at approximately 1605, she is feeling well, and is motivated for discharge. I do not feel that she requires observation or admission. I feel she can be discharged safely home with follow-up. Return instructions to the emergency department were reviewed. Disposition is discharged home in stable condition. History & Record Review Discussion w/independent historian: Patient and Family Lab Data Attestation: I reviewed the patient's lab results. Labs: Laboratory Results - last 24 hr 03/23/24 03/23/24 14:50 15:00 WBC 6.7 RBC 4.38 Hgb 13.2 Hct 40.5 MCV 92.5 MCH 30.1 MCHC 32.6 RDW Std Deviation 47.4 H RDW Coeff of Romy 13.9 Plt Count 194 MPV 9.4 Immature Gran % (Auto) 0.300 Neut % (Auto) 81.3 H Lymph % (Auto) 11.2 L [place] % (Auto) 6.7 Eos % (Auto) 0.1 Baso % (Auto) 0.4 Absolute Neuts (auto) 5.4 Absolute Lymphs (auto) 0.75 L Nucleated RBC % 0 Sodium 142 Potassium 3.3 L Chloride 110 H Carbon Dioxide 25.0 Anion Gap 7 BUN 17 Creatinine 0.68 Estim Creat Clear Calc 46.72 Est GFR (MDRD) Af Amer 108 Est GFR (MDRD) Non-Af 90 BUN/Creatinine Ratio 25.2 H Glucose 94 Calcium 9.0 Total Bilirubin 1.50 H AST 26 ALT 27 Alkaline Phosphatase 68 Total Protein 6.1 L Albumin 3.7 Globulin 2.4 Albumin/Globulin Ratio 1.5 Urine Color Yellow Urine Clarity Clear Urine pH 8.0 Ur Specific [place] 1.010 Urine Protein 15 H Urine Glucose (UA) Normal Urine Ketones 50 H Urine Occult Blood Negative Urine Nitrite Negative Urine Bilirubin Negative Urine Urobilinogen 1 H Ur Leukocyte Esterase Negative Urine RBC 0 SEEN Urine WBC 0 SEEN Ur Squamous Epith Cells 0-5 SEEN Urine Bacteria RARE Urine Mucus RARE Radiography Diagnostic Testing: Clinical Impression(s) from Imaging Studies Brain CT 03/23/24 14:44 IMPRESSION: Negative head/brain CT without intravenous contrast. Electronically Signed: Bonilla De La Rosa MD at 15:46 EDT , Chest X-Ray 03/23/24 15:13 IMPRESSION: 1. No acute findings in the chest. 2. Interval development of moderate degenerative osteoarthrosis of right shoulder and calcified granuloma in the right lower lung zone. Electronically Signed: Bonilla De La Rosa MD at 15:48 EDT , Discharge Plan Triage Chief Complaint: General Illness ED Provider: Bonilla Farnsworth Dx/Rx/DC Orders Clinical Impression: Shakiness, Hypokalemia Instructions: ED Hypokalemia, ED Symptoms Uncertain Cause Prescriptions: No Action trazodone 50 MG tablet 50 mg PO QHS sucralfate 1 GM tablet 1 g PO 4X/DAY potassium chloride [Klor-Con 10] 10 MEQ tablet extended release 10 meq PO DAILY spironolactone 25 MG tablet 25 mg PO DAILY levothyroxine 25 MCG tablet 25 mcg PO DAILY tamoxifen 20 MG tablet 20 mg PO DAILY famotidine 20 MG tablet 20 mg PO BID Qty: 28 0RF Primary Care Provider: Kemal Cano Referrals: Kemal Cano MD [Primary Care Provider] - 3-5 Days if not improving Activity Restrictions/Additional Instructions: Return with new or worsening symptoms. Follow-up with your primary care provider. Continue your home potassium supplementation and have it rechecked in the next few days. Print Language: Sinhala Disposition Disposition: Home, Self Care
[2024-03-23 14:59] LABS: Absolute Lymphocyte Count 0.75 X10^3/uL (0.83-4.51); Absolute Neutrophil Count 5.4 X10^3/uL (2.0-7.7); Basophil# 0.03 X10^3/uL; Basophil% 0.4 % (0-1); Eosinophil# 0.01 X10^3/uL; Eosinophils% 0.1 % (0-5); Hematocrit 40.5 % (37-47); Hemoglobin 13.2 g/dL (12.0-15.0); Lymphocyte # 0.75 X10^3/ul (0.83-4.51); Lymphocyte % 11.2 % (19-41); Mean Corp Hgb Conc 32.6 g/dL (32-36); Mean Corpuscular Hgb 30.1 pg (27.0-32.0); Mean Corpuscular Volume 92.5 fL (81-99); Mean Platelet Vol. 9.4 fl (6.2-12.0); Monocyte# 0.45 X10^3/uL; Monocyte% 6.7 % (0-10); NRBC Flagged by Analyzer 0 % (0-5); Neutrophil # 5.41 X10^3/uL (2.7-7.7); Neutrophil % 81.3 % (47-70); Platelet Count 194 K/mm3 (150-450); RBC Distribution Width CV 13.9 % (11.6-14.6); RBC Distribution Width SD 47.4 fl (35.1-43.9); Red Blood Count 4.38 M/mm3 (4.2-5.4); White Blood Count 6.7 K/mm3 (4.4-11.0)
[2024-03-23 15:08] LABS: Red Blood Cells-Urine 0 SEEN /hpf (0-5); White Blood Cells 0 SEEN /hpf (0-5)
[2024-03-23 15:13] LABS: Color, Urine Yellow (Yellow); Glucose, Dipstick Normal (Normal); Ketone-Dipstick 50 mg/dl (Negative); Leukocyte Esterase-Dipstick Negative /ul (Negative); Nitrite-Dipstick Negative (Negative); Occult Blood-Urine Negative /ul (Negative); Protein-Dipstick 15 mg/dl (Negative); Urine Bilirubin Dipstick Negative (Negative); Urine Clarity Clear (Clear); Urine Urobilinogen 1 mg/dl (Normal)
--- NOTE | 2024-03-23 15:13 | RAD_ITS ---
EXAM: XR CHEST, 1 VIEW CLINICAL INDICATION: CAD TECHNIQUE: Frontal view of the chest. COMPARISON: 03/12/2011. FINDINGS: LUNGS AND PLEURAL SPACES: Calcified granuloma in the right lower lung zone was not present previously. No consolidation or edema. No pleural effusion. No pneumothorax. HEART: Unremarkable. Cardiac silhouette not enlarged. MEDIASTINUM: Central airways and mediastinal contour are unremarkable. BONES/JOINTS: Degenerative osteoarthrosis of right shoulder was not present previously. No acute fracture. SOFT TISSUES: Surgical clips around the calcified granuloma in the right lobe. Surgical clips is probably external to the patients body. RAD/Chest 1 View (Portable) IMPRESSION: 1. No acute findings in the chest. 2. Interval development of moderate degenerative osteoarthrosis of right shoulder and calcified granuloma in the right lower lung zone. Electronically Signed: Bonilla De La Rosa MD at 15:48 EDT ,
[2024-03-23 15:24] LABS: ALB/GLOB Ratio 1.5 RATIO (0.9-2.4); AST(SGOT) 26 U/L (15-37); Alanine Aminotransfer ALT/SGPT 27 U/L (13-56); Albumin, Serum 3.7 g/dL (3.2-5.0); Alkaline Phosphatase 68 U/L (45-117); Anion Gap 7 (5-15); BUN 17 mg/dL (7-18); BUN/Creat Ratio 25.2 RATIO (10-20); Chloride 110 mmol/L (98-107); Creatinine, Serum 0.68 mg/dL (0.55-1.02); EST Glomerular Filtration Rate 90 mL/min (>60); Est Glom Filt Rate - Afr Amer 108 mL/min (>60); Estimated Creatinine Clearance 46.72 ml/min; Globulin 2.4 g/dL (2.2-4.2); Glucose 94 mg/dL (74-106); Potassium 3.3 mmol/L (3.5-5.1); Protein, Total 6.1 g/dL (6.4-8.2); Sodium Level 142 mmol/L (136-145)
[2024-03-23 15:50] LABS: Bacteria RARE /hpf (None Seen); Mucous, Urine RARE /hpf (<or=2+); Squamous Epithelial Cells - UA 0-5 SEEN /hpf (5-10)
[2024-03-23] MEDS: Potassium Chloride Oral Tablet 20 MEQ 40 MEQ PO (16:15)
[2024-03-23 16:17] VITALS: BP 142/67; PULSE 89; RESP 18; TEMP 36.8; O2SAT 96
== END 2024-03-23 16:18 | disposition home or self-care (01) ==
PROVIDERS: Emergency Provider Emergency Medicine; PCP Internal Medicine; Visit Provider Emergency Medicine
DX: E87.6 Hypokalemia (principal)
CPT/HCPCS: 70450; 71045; 80053; 81001; 85025; 93005; 99282